=== PATIENT | male | born 1970 | race Caucasian/White ===

== ENCOUNTER 2023-08-16 12:46 | Emergency (ER) | payer OTHER ==
[~2023-08-16] VITALS: Ht 167.7 cm; Wt 79.3 kg
--- NOTE | 2023-08-16 13:12 | ED Upper Extremity ---
General Chief Complaint: Upper Extremity Stated Complaint: LT ELBOW INJ Nursing Triage Note: PT AMB TO FT WITH C/O L WRIST AND ELBOW INJURY AT WORK. 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 States initially he heard a "pop" at the left wrist and point to the base of his thumb. Also holding onto his elbow. He states that it happened about 45min ago. Denies pain to shoulder/upper arm. Is able to show me the area of pain by pronating and supinating his forearm on the left. He points to the spencer of the thumb and the olecranon of the elbow. He points to an obviously swollen bursa at the elbow. Onset: just prior to arrival ("12:15") Pain/Injury Location: left arm, left elbow, left forearm, left wrist Method of Injury: fell Modifying Factors: Worse With Movement Allergies and Home Medications Allergies Coded Allergies: No Known Drug Allergies (Unverified , 08/16/23) Patient Home Medication List Home Medication List Reviewed: Yes Review of Systems Constitutional: see HPI Musculoskeletal: joint pain (left elbow and wrist) Skin: no symptoms reported Psychiatric/Neurological: No Symptoms Reported Past Jypvsor-Rtaidf-Zxcbfu Hx Patient Social History Tobacco Use?: No Use of E-Cig and/or Vaping dev: No Substance use?: No Alcohol Use?: No Pt feels they are or have been: No Immunizations Up To Date Influenza Vaccine Up-to-Date: No; Not Current Past Medical History Surgery/Hospitalization HX: JAW SURGERY, COLON PERF, COLOSTOMY REVERSAL Physical Exam Vital Signs Vital Signs - First Documented 08/16/23 12:55 Temp 36.3 Pulse 108 Resp 16 B/P (MAP) 152/88 (109) Pulse Ox 96 Capillary Refill : Height, Weight, BMI Height: '" Weight: lbs. oz. kg; 28.00 BMI Method: General Appearance: WD/WN, no apparent distress HEENT: PERRL/EOMI Cardiovascular: regular rate, rhythm Respiratory: no respiratory distress, no accessory muscle use Shoulder: normal inspection, normal ROM Elbow/Forearm: swelling (patient has soft enlarged olecranon bursa - no skin abrasions. no erythema, no warmth. Intact ROM at the left elbow without palpable deformity. Patient states tenderness at the radial wrist and points to the base of the thumb. No snuff box tenderness. normal cap refill and sensation. INtact ROM of the left wrist. 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)) Hand: normal inspection, non-tender, no evidence of injury, normal ROM, Left Neurologic/Tendon: normal sensation, normal motor functions, normal tendon functions Neurologic/Psychiatric: alert, normal mood/affect, oriented x 3 Skin: normal color, warm/dry Progress/Results/Core Measures Results/Orders My Orders Orders - NICOLE ADAMSON MD Wrist, Left, 3 Views Or More (08/16/23 13:06) Ibuprofen Tablet (Ibuprofen Tablet) (08/16/23 13:15) Vital Signs/I&O 08/16/23 12:55 Temp 36.3 Pulse 108 Resp 16 B/P (MAP) 152/88 (109) Pulse Ox 96 Blood Pressure Mean: 109 Progress Progress Note : Time: 13:49 Diagnostic Imaging Diagonstic Imaging: Xray Comments [facility], [place] NAME: EULALIA HORNER [facility] REC#: [id number] PT STATUS: REG ER : 1970 PHYSICIAN: NICOLE ADAMSON MD ADMIT DATE: 08/16/23/ER Draft Date of Exam:08/16/23 WRIST, LEFT, 3 VIEWS OR MORE EXAMINATION: Left wrist radiographs, 3 views. COMPARISON: None. HISTORY: 53-year-old male, left wrist pain. Injury. FINDINGS: There is moderate joint space loss of the second and third metacarpophalangeal joints. There are potential erosions of the third metacarpal head. The additional joint spaces are well preserved. There is no chondrocalcinosis. Bone mineralization and alignment is unremarkable. There is no acute fracture. IMPRESSION: 1. No acute bony abnormality of left wrist. 2. 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 Dictated on workstation # [id number] Dict: 08/16/23 1333 Trans: 08/16/23 1336 [facility] [id number] Interpreted by: JERICA PLASENCIA MD Electronically signed by: Departure Impression Primary Impression: Contusion of wrist Qualified Codes: S60.212A - Contusion of left wrist, initial encounter Additional Impression: Olecranon bursitis, left elbow Disposition: 01 HOME, SELF-CARE Condition: Stable Departure-Patient Inst. Decision time for Depature: 13:48 Referrals: NO,LOCAL PHYSICIAN (PCP/Family) Primary Care Physician Patient Instructions: Minor Contusion ED, Olecranon Bursitis Exercises Add. Discharge Instructions: Use Ice to the sore areas of your wrist and elbow. You can wrap the elbow for comfort and stability. Over the counter Ibuprofen 2-3 pills (400-600mg) every 6 hours with food as needed for pain for the next week. If you notice any increased swelling, redness or pain, please return to the ER for re-evaluation or follow up with your primary care provider. NICOLE ADAMSON MD Aug 16, 2023 13:12
[2023-08-16] MEDS ORDERED: IBUPROFEN 600 MG TABLET PO ONE (13:15)
--- NOTE | 2023-08-16 13:36 | Diagnostic Imaging Report ---
EXAMINATION: Left wrist radiographs, 3 views. COMPARISON: None. HISTORY: 53-year-old male, left wrist pain. Injury. FINDINGS: There is moderate joint space loss of the second and third metacarpophalangeal joints. There are potential erosions of the third metacarpal head. The additional joint spaces are well preserved. There is no chondrocalcinosis. Bone mineralization and alignment is unremarkable. There is no acute fracture. IMPRESSION: 1. No acute bony abnormality of left wrist. 2. 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 Dictated by: Dictated on workstation # [id number]
[2023-08-16 13:58] VITALS: BP 152/88
== END 2023-08-16 14:00 | disposition home or self-care (01) ==
LOC: ER 12:51
DX: S60.212A Contusion of left wrist, initial encounter (principal); M70.22 Olecranon bursitis, left elbow; W18.30XA Fall on same level, unspecified, initial encounter; X50.1XXA Overexertion from prolonged static or awkward postures, initial encounter; Y92.59 Other trade areas as the place of occurrence of the external cause; Y99.0 Civilian activity done for income or pay
CPT/HCPCS: 73110

== ENCOUNTER 2023-10-14 14:40 | Emergency (ER) | payer OTHER ==
[~2023-10-14] VITALS: Ht 167.7 cm; Wt 79.4 kg
[2023-10-14] MEDS ORDERED: morphine INJ 10 MG/ML 1ML (SYR OR VIAL) IVP STA (14:48)
--- NOTE | 2023-10-14 14:57 | ED EENT ---
History of Present Illness General Chief Complaint: Facial Problems Stated Complaint: FACE INJ | HIT IN FACE WITH PIPE Nursing Triage Note: PT TO [facility] 6 BY WITH COMPLAINT OF RIGHT CHEEK PAIN AFTER BEING HIT WITH A PIPE AT WORK. Source: patient Exam Limitations: no limitations History of Present Illness Date Seen by Provider: Oct 14, 2023 Time Seen by Provider: 14:37 Initial Comments 53-year-old male presents emergency department today for blunt trauma to his right facial region. 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 He denies any loss of consciousness. No blurred or double vision but complains of pain in his right malar region. No malocclusion. All other systems reviewed and negative except documented per HPI. Voice recognition software was used to help create this chart Allergies and Home Medications Allergies Coded Allergies: No Known Drug Allergies (Unverified , 08/16/23) Patient Home Medication List Home Medication List Reviewed: Yes Review of Systems Review of Systems Constitutional: see HPI Past Yfxcqwy-Boqxtr-Negrme Hx Patient Social History Tobacco Use?: No Use of E-Cig and/or Vaping dev: No Substance use?: No Alcohol Use?: No Pt feels they are or have been: No Past Medical History Surgery/Hospitalization HX: JAW SURGERY, COLON PERF, COLOSTOMY REVERSAL Physical Exam Vital Signs Vital Signs - First Documented 10/14/23 14:44 Temp 36.3 Pulse 101 Resp 20 B/P (MAP) 161/107 (125) Pulse Ox 96 O2 Delivery Room Air Height, Weight, BMI Height: '" Weight: lbs. oz. kg; 28.00 BMI Method: General Appearance: WD/WN, mild distress (Appears to be in pain) Eyes: bilateral eye normal inspection, bilateral eye PERRL, bilateral eye EOMI, bilateral eye other (No evidence for entrapment. There are some mild swelling in the right infra malar region. No crepitus or deformity.) Ears: bilateral ear auricle normal, bilateral ear canal normal, bilateral ear TM normal, bilateral ear other (No hemotympanum) Nose: normal inspection Mouth/Throat: normal mouth inspection, pharynx normal Neck: non-tender, supple Cardiovascular: regular rate, rhythm, no murmur Respiratory: chest non-tender, lungs clear, normal breath sounds, no respiratory distress Skin: normal color, warm/dry Progress/Results/Core Measures Results/Orders My Orders Orders - DULCE LACEY DO Morphine Injection (Morphine Injection (10/14/23 14:48) Ct Facial Bones Wo (10/14/23 14:50) Vital Signs/I&O 10/14/23 14:44 Temp 36.3 Pulse 101 Resp 20 B/P (MAP) 161/107 (125) Pulse Ox 96 O2 Delivery Room Air Blood Pressure Mean: 125 Departure Communication (Admissions) Patient is hemodynamically stable, neurologically intact. Extraocular movements are intact bilaterally with no evidence of entrapment. CT facial bones pending at this time. No loss of consciousness, nausea vomiting, not on any blood thinning medications with no other risk factors for intracranial hemorrhage. No indication for CT head at this time. 1525: CT scan negative for any acute fracture or other abnormality outside of small soft tissue swelling. I have inability reviewed the images. Patient is discharged in stable condition. Impression Primary Impression: Contusion of face Qualified Codes: S00.83XA - Contusion of other part of head, initial encounter Disposition: 01 HOME, SELF-CARE Condition: Stable Departure-Patient Inst. Referrals: NO,LOCAL PHYSICIAN (PCP/Family) Primary Care Physician Patient Instructions: Contusion (DC) Add. Discharge Instructions: Your CT scan shows no fractures or other acute abnormality. Use ibuprofen and Tylenol as needed for pain. Return to the emergency department for any severe concerns, specifically if you develop any blurred or double vision. All discharge instructions reviewed with patient and/or family. Voiced understanding. DULCE LACEY DO Oct 14, 2023 14:57
--- NOTE | 2023-10-14 15:20 | Diagnostic Imaging Report ---
INDICATION: Right facial injury and right face pain. Axial imaging through patient was performed without contrast. Sagittal and coronal reformations were also performed. The mandible appears to be intact. Zygomatic arches are intact. Maxillary sinus restrepo are intact. There is some mild mucosal thickening bilateral maxillary sinuses. No displaced nasal bone fractures identified. The orbits appear to be intact. There is some mild swelling in the right premaxillary soft tissues but no fluid collection or hematoma is identified. There is some mild mucosal thickening of the sphenoid sinus as well as frontal sinus. IMPRESSION: Mild soft tissue swelling in the right premaxillary soft tissues. No facial bone fractures detected. Dictated by: Dictated on workstation # [id number]
[2023-10-14] MEDS ORDERED: ACETAMINOPHEN 500 MG TABLET PO ONE (15:30)
[2023-10-14 15:49] VITALS: BP 151/109
== END 2023-10-14 15:49 | disposition home or self-care (01) ==
LOC: EDUNIT# 14:40 → ER 14:42
DX: S00.83XA Contusion of other part of head, initial encounter (principal); W22.8XXA Striking against or struck by other objects, initial encounter; Y92.59 Other trade areas as the place of occurrence of the external cause; Y99.0 Civilian activity done for income or pay
CPT/HCPCS: 70486